=== PATIENT | male | born 1945 | race Caucasian/White ===

== ENCOUNTER 2019-09-12 08:08 | Outpatient (CLI) | payer MEDICARE, SELFPAY ==
--- NOTE | ~2019-09-12 | US_ITS ---
EXAMINATION: US carotid duplex BI DATE: 09/12/2019 08:53 INDICATION: Bilateral carotid stenosis TECHNIQUE: Grayscale, color Doppler, and pulsed Doppler images of the cervical carotid arteries were obtained. The degree of vessel stenosis is placed in one of the following categories: normal, <50%, 5 0-69%, >=70% but less than near-occlusion, near-occlusion, or total occlusion. Note that percent sten osis relative to normal distal artery lumen diameter is indirectly measured from velocity measurement s as described by Sami, et al. Radiology 2003; [id number]:340-346. COMPARISON: None. FINDINGS: RIGHT: The right common carotid artery (CCA) peak systolic velocity (PSV) is 68.8 cm/s. The right internal c arotid artery (ICA) PSV is 115.7 cm/s. The right ICA end-diastolic velocity (EDV) is 34.9 cm/s. The r ight ICA/CCA PSV ratio is 1.7. Grayscale and color Doppler images yield an estimate of less than 50% diameter reduction from plaque in the ICA. The external carotid artery (ECA) PSV is 117.3 cm/s. There is antegrade flow in the right vertebral artery. LEFT: The left CCA PSV is 80.9 cm/s. The left ICA PSV is 86.4 cm/s. The left ICA EDV is 35.8 cm/s. The left ICA/CCA PSV ratio is 1.1. Grayscale and color Doppler images yield an estimate of less than 50% diam eter reduction from plaque in the ICA. The ECA PSV is 110.8 cm/s. There is antegrade flow in the left vertebral artery. IMPRESSION: 1. Less than 50% stenosis in the right internal carotid artery. 2. Less than 50% stenosis in the left internal carotid artery. Reviewed, dictated and finalized at [facility]. Reviewed, dictated and finalized at location [facility].
== END 2019-09-12 08:09 | disposition home or self-care (01) ==
LOC: CHSIMG 08:11
PROVIDERS: PCP Internal Medicine; Visit Provider Internal Medicine
DX: I65.23 Occlusion and stenosis of bilateral carotid arteries (principal)
CPT/HCPCS: 93880

== ENCOUNTER 2019-12-27 11:25 | Outpatient (CLI) | payer MEDICARE, SELFPAY ==
--- NOTE | ~2019-12-27 | XR_ITS ---
EXAMINATION: XR chest 2V DATE: 12/27/2019 11:47 INDICATION: Chronic cough TECHNIQUE: PA and lateral views of the chest were obtained. COMPARISON: Chest radiograph dated 07/02/2018 FINDINGS: Small calcified nodules in the left upper and right middle lobes consistent with old granulomatous di sease. Lungs remain otherwise clear with no other airspace opacities, pulmonary edema, pleural effusi on or pneumothorax. The cardiomediastinal silhouette is normal. Mild thoracic spondylosis with minima l chronic anterior wedging of a few midthoracic vertebral bodies. IMPRESSION: 1. No acute cardiopulmonary disease. Reviewed, dictated and finalized at location [facility].
== END 2019-12-27 11:26 | disposition home or self-care (01) ==
LOC: CHSIMG 11:28
PROVIDERS: PCP Internal Medicine; Visit Provider Internal Medicine
DX: R05 Cough (principal); R19.7 Diarrhea, unspecified; K92.1 Melena; R19.4 Change in bowel habit; R10.9 Unspecified abdominal pain
CPT/HCPCS: 71046

== ENCOUNTER 2019-12-30 07:57 | Outpatient (CLI) | payer MEDICARE, SELFPAY ==
--- NOTE | ~2019-12-30 | CT_ITS ---
EXAMINATION: CT abdomen pelvis w con DATE: 12/30/2019 08:45 INDICATION: Low abdominal pain for 3 months. Diarrhea. History of diverticulitis. TECHNIQUE: Computed tomography (CT) of the abdomen and pelvis was performed without intravenous contr ast. Automated exposure control and iterative reconstruction technique were employed. Exam dose: 350 .24 mGy-cm total exam DLP. COMPARISON: None. FINDINGS: Normal heart size. No pericardial or pleural effusion. There is mild bilateral predominantl y dependent lower lobe atelectasis. There are numerous scattered hepatic probable cysts, most of which are quite small, the largest situa aldo in the medial hepatic dome, measuring up to 8 mm. The gallbladder is present. No gallbladder wall thickening or pericholecystic fluid or inflammation. No bile duct or pancreatic duct dilatation. No pancreatic mass lesion or calcification. Normal spleni c size. Normal morphology of the adrenal glands. There is an 8 mm and a 5 cm right renal cysts. There is a 1 cm left renal cyst. Radiopaque seeds are identified in the prostate. There is some soft tissue thickening along the poste rior bladder wall; prostate or bladder malignancy are not excluded. Normal appendix. No bowel obstruction, bowel wall thickening, pneumatosis or intraperitoneal free air . There is atherosclerotic calcification of the descending thoracic aorta and abdominal aorta. No intra peritoneal or retroperitoneal or pelvic mass lesion or adenopathy or ascites. There are degenerative changes of the thoracic and lumbar spine. There is severe degenerative disc di sease in particular at L5-S1 with mild retrolisthesis. No suspicious osteolytic or osteoblastic lesions are identified. IMPRESSION: Hepatic and renal cysts Radiopaque seeds in the prostate Soft tissue thickening along the posterior bladder wall; prostate or bladder malignancy are not exclu ded Reviewed, dictated and finalized at [facility]. Reviewed, dictated and finalized at location [facility]. IMPRESSION: Hepatic and renal cysts Radiopaque seeds in the prostate Soft tissue thickening along the posterior bladder wall; prostate or bladder ma lignancy are not excluded
[2019-12-30 08:25] LABS: Estimated Glomerular Filt Rate > 60
== END 2019-12-30 07:58 | disposition home or self-care (01) ==
PROVIDERS: PCP Internal Medicine; Visit Provider Internal Medicine
DX: R19.7 Diarrhea, unspecified (principal); K92.1 Melena; R19.4 Change in bowel habit; R10.9 Unspecified abdominal pain; R05 Cough
CPT/HCPCS: 74177; Q9965

== ENCOUNTER 2020-01-20 03:07 | Outpatient (CLI) | payer MEDICARE, SELFPAY ==
[2020-01-21 22:32] LABS: SARS-CoV-2 RNA PCR Negative
== END 2020-01-20 03:08 | disposition home or self-care (01) ==
LOC: ANHCOVIDDT 03:07
PROVIDERS: PCP Internal Medicine; Visit Provider Surgery
DX: Z01.812 Encounter for preprocedural laboratory examination (principal); Z11.59 Encounter for screening for other viral diseases
CPT/HCPCS: 87635; C9803; U0003

== ENCOUNTER 2020-01-22 02:23 | Day surgery (SDC) | payer MEDICARE, SELFPAY ==
[2020-01-09 14:55] VITALS: BMI 25.6
--- NOTE | 2020-01-22 10:29 | PM.HPGS ---
History of Present Illness History of Present Illness Consent: Risks, benefits, and alternatives of a colonoscopy with possible biopsy, possible polypectomy have been discussed and questions answered. Patient agrees to proceed with procedure. Chief complaint: change in bowel,melena Narrative: Odilon Hurt is a 74 year old white male who recently presented to his PCP with complaint loose stools 3 to 4 times a day and several episodes of bright red bleeding per rectum over the last 3 months. He was seen by his PCP on 12/27/2019 and subsequently had a CT scan of the abdomen pelvis which showed some prostatic sees from his previous prostate cancer radiation but no other abnormalities within the abdomen. Patient presents now for a colonoscopy for screening and to possible does of his melena. There has been no recent history of ingestion of antibiotics self shellfish or undercooked hamburger. Patient has no recent history of travel outside of the country. He has had no pain with bowel movements and has not previously had a colonoscopy. Review of Systems Constitutional: Constitutional: Reports no additional constitutional complaints, Reports fatigue and Denies malaise Eyes: Eyes: Denies change in vision and Denies loss of vision ENT: Reports Normal hearing present, Denies change in voice, Denies dizziness, Denies hoarseness, Reports nasal discharge ( recent mild but persistent rhinorrhea) and Denies sore throat Cardiovascular: Cardiovascular: Denies chest pain, Denies leg edema and Denies dyspnea Comments: Patient has a history of pure hypercholesterolemia. Respiratory: Respiratory: Reports cough ( Periodic dry cough), Denies dyspnea and Denies wheezing Comments: Patient has a history of a diagnosis of obstructive sleep apnea but is not obese. Gastrointestinal: Gastrointestinal: Denies hematochezia, Denies change in bowel habits and Denies heartburn Genitourinary: Genitourinary: Denies urinary frequency and Denies urinary incontinence Integumentary/Breasts: Comments: history of actinic keratoses. Neurologic: Reports Normal hearing present, Denies confusion, Denies dizziness, Denies loss of vision, Denies memory loss and Denies seizure-like activity Psychiatric: Psychiatric: Denies confusion, Denies depression and Denies memory loss Endocrine: Endocrine: Denies cold intolerance and Reports fatigue Hematologic/Lymphatic: Hematologic/Lymphatic: Denies easy bleeding and Denies easy bruising Allergic/Immunologic: Allergic/Immunologic: Denies wheezing PMFSH Past Medical History Medical History (Updated 01/22/20 @ 13:16 by Reza Butler MD) Actinic keratitis (Unknown) History of malignant neoplasm of prostate Hypercholesteremia (Unknown) Obstructive sleep apnea (Unknown) Social History Social History Smoking status: Former smoker Alcohol intake: never Substance use: never Gender identity (if verbalized by the patient): Male Sexual Orientation (if Verbalized by the Patient): Straight or Heterosexual Meds Home Medications and Allergies Home Medications Medication Instructions Recorded Confirmed Type No Home Medications 01/09/20 01/22/20 History Allergies Allergy/AdvReac Type Severity Reaction Status Date / Time No Known Allergies Allergy Unverified 01/22/20 11:35 Exam Const: General: cooperative, healthy appearing, no acute distress, well developed and alert; No confusion Nutritional Appearance: well nourished Orientation/consciousness: patient oriented x3 and No confusion Limitations: no limitations HENMT: Head: normal to inspection, normocephalic and atraumatic Ears: hearing grossly normal bilaterally General nose exam: Normal external nose present Face and sinus: no edema Mouth: Yes Normal oral and palatal mucosa present and Yes lip normal Throat: posterior oropharynx normal Eyes: General: appearance normal, both eyes a
[2020-01-22 11:36] VITALS: BP 122/68; PULSE 69; RESP 18; TEMP 36.4; O2SAT 100; BMI 25.2
[2020-01-22] MEDS: LACTATED RINGERS 1,000 ML 150 ML IV CONT (11:47)
--- NOTE | 2020-01-22 12:33 | WPDANESEPPF ---
Anes - Initial Pre Proc Eval Procedure: Operation Date: 01/22/20 13:00 Proposed Procedures p Colonoscopy - Reza Butler MD Date/Time: 01/22/20 12:33 Surgeon: Reza Butler MD Pre Op Diagnosis: change in bowel,melena Patient Data Age: 74 Gender: M Height: 5 ft 6 in Weight: 70.8 kg Last Vital Signs Temp 97.5 F L 01/22/20 11:36 Pulse 69 01/22/20 11:36 Resp 18 01/22/20 11:36 BP 122/68 01/22/20 11:36 Pulse Ox 100 01/22/20 11:36 Allergies Allergy/AdvReac Type Severity Reaction Status Date / Time No Known Allergies Allergy Unverified 01/22/20 11:35 Home Medications Medication Instructions Recorded Confirmed Type No Home Medications 01/09/20 01/22/20 History Patient hx anesthesia problems: none Family hx anesthesia problems: none PMFSH Past Medical History Medical History (Updated 01/22/20 @ 10:41 by Reza Butler MD) Actinic keratitis (Unknown) Hypercholesteremia (Unknown) Obstructive sleep apnea (Unknown) Social History Social History Smoking status: Former smoker Alcohol intake: never Substance use: never Gender identity (if verbalized by the patient): Male Sexual Orientation (if Verbalized by the Patient): Straight or Heterosexual Anes - Eval Final PreProcedure Day of Procedure 01/22/20 12:33 Patient weight: normal Heart: regular rate and rhythm Lungs: clear to auscultation Airway: Mallampati scale class II Neurological: alert and oriented Last oral intake: >/= 8 hours ASA classification: II Emergent: no Anesthetic plan: proceed Anesthesia type and monitoring: general GIVS and standard monitoring Informed Consent: The patient's anesthetic plan and its attendant risks and benefits were discussed with the patient/family/POA. Questions were solicited and answers provided to the satisfaction of the patient/family/POA.
[2020-01-22 14:32] VITALS: BP 99/63; PULSE 56; RESP 15; O2SAT 98
[2020-01-22 14:42] VITALS: BP 101/68; PULSE 54; RESP 14; O2SAT 100
[2020-01-22 14:52] VITALS: BP 121/80; PULSE 58; RESP 17; O2SAT 100
== END 2020-01-22 15:10 | disposition home or self-care (01) ==
PROVIDERS: PCP Internal Medicine; Visit Provider Surgery
PROC: 0DJD8ZZ Inspection of Lower Intestinal Tract, Via Natural or Artificial Opening Endoscopic (ICD-10-PCS; CPT 45378; principal; 2020-01-22 13:00)
DX: Z12.11 Encounter for screening for malignant neoplasm of colon (principal); D12.5 Benign neoplasm of sigmoid colon; K57.30 Diverticulosis of large intestine without perforation or abscess without bleeding; K64.8 Other hemorrhoids; R19.5 Other fecal abnormalities; R19.7 Diarrhea, unspecified; Z87.891 Personal history of nicotine dependence; G47.33 Obstructive sleep apnea (adult) (pediatric); E78.00 Pure hypercholesterolemia, unspecified; H16.139 Photokeratitis, unspecified eye; Z85.46 Personal history of malignant neoplasm of prostate
CPT/HCPCS: 45380; 88305; J2704; J7120

== ENCOUNTER 2021-03-14 13:37 | Emergency (ER) | payer MEDICARE, SELFPAY ==
[2021-03-14 13:45] VITALS: BP 140/73; PULSE 75; RESP 16; TEMP 35.8; O2SAT 99
[2021-03-14] MEDS: LIDOCAINE HCL 2% PF INJ 5 ML VIAL 3 ML INFILTRATE (14:20)
[2021-03-14] MEDS: IBUPROFEN 400 MG TABLET 800 MG PO (14:21)
--- NOTE | 2021-03-14 14:46 | ED.WOUNDLAC ---
HPI - Wound/Laceration General Chief Complaint: Wound/Laceration Stated Complaint: L hand lac Related Data Allergies Allergy/AdvReac Type Severity Reaction Status Date / Time No Known Allergies Allergy Unverified 01/22/20 11:35 [facility] Past Medical History Medical History (Updated 03/14/21 @ 14:50 by Dolores Tello MD) Actinic keratitis (Unknown) History of malignant neoplasm of prostate Hypercholesteremia (Unknown) Obstructive sleep apnea (Unknown) Social History Social History Smoking status: Former smoker Alcohol intake: never Substance use: never Gender identity (if verbalized by the patient): Male Sexual Orientation (if Verbalized by the Patient): Straight or Heterosexual Course Vital Signs Vital signs: Vital Signs Temperature 35.8 C L 03/14/21 13:45 Pulse Rate 75 03/14/21 13:45 Respiratory Rate 16 03/14/21 13:45 Blood Pressure 140/73 03/14/21 13:45 Pulse Oximetry 99 03/14/21 13:45 Temperature 35.8 C L 03/14/21 13:45 Pulse Rate 75 03/14/21 13:45 Respiratory Rate 16 03/14/21 13:45 Blood Pressure 140/73 03/14/21 13:45 Pulse Oximetry 99 03/14/21 13:45 Discharge Plan Discharge Clinical Impression: Laceration Patient Disposition: Home, Self-Care Condition: Stable Instructions: Antibiotic Form, Care For Your Stitches (ED), Laceration (ED) Additional Instructions: Home. May RTC prn. PMD in 1-2 days. Rx below. Keep the lac clean, dry and dressed. OTC tylenol/motrin. Prescriptions: New amoxicillin 875 mg tablet 875 mg PO Q12H Qty: 20 RF: 0 Follow-up/Referrals: Ángel Guevara MD [Primary Care Provider] - Time of Disposition: 14:51
[2021-03-14 14:52] VITALS: BP 123/72; PULSE 71; RESP 16; O2SAT 100
--- NOTE | 2021-03-14 14:56 | ED.WOUNDLAC ---
HPI - Wound/Laceration General Chief Complaint: Wound/Laceration Stated Complaint: L hand lac Time Seen by Provider: 03/14/21 13:39 Source: patient Mode of arrival: ambulatory Limitations: no limitations History of Present Illness HPI narrative: left wrist lateral laceration 3.5 cm, linear, gaping. Onset (ago): hour(s) (1) Extremity Location: Left: wrist Place: home Patient tetanus UTD: Yes Context: accidental Associated symptoms: pain Treatments prior to arrival: bandage Related Data Allergies Allergy/AdvReac Type Severity Reaction Status Date / Time No Known Allergies Allergy Unverified 01/22/20 11:35 Review of Systems Review of Systems: All systems reviewed & are unremarkable except as noted in HPI and below Musculoskeletal: Comments: lateral left wrist laceration PMFSH Past Medical History Medical History Actinic keratitis (Unknown) History of malignant neoplasm of prostate Hypercholesteremia (Unknown) Obstructive sleep apnea (Unknown) Social History Social History Smoking status: Former smoker Alcohol intake: never Substance use: never Gender identity (if verbalized by the patient): Male Sexual Orientation (if Verbalized by the Patient): Straight or Heterosexual Exam Const: General: no acute distress and alert Nutritional Appearance: well nourished Orientation/consciousness: patient oriented x3 HENMT: Head: normal to inspection and laceration Ears: external ears normal and TM's normal bilaterally General nose exam: Normal external nose present and Normal nares present Mouth: Yes lip normal and Yes moist mucous membranes Teeth and gingiva: dentition normal Eyes: Conjunctivae: conjunctivae normal Pupils: Equal, round and reactive pupils present EOM: EOMs intact bilaterally Neck: Neck: normal visual inspection and no lymphadenopathy Chest: Chest palpation & inspection: normal inspection of the chest Resp: Effort & Inspection: normal respiratory effort Auscultation: clear to auscultation bilaterally Cardio: Rate: regular rate Rhythm: regular rhythm GI: GI Palp: Yes Soft to palpation (non-tender) Percussion: Yes normal to percussion Back/Spine/Pelvis: Back: no CVA tenderness Skin: General skin exam: normal color Rashes: no rashes Neuro: General: patient oriented x3, moves all extremities, no meningeal signs, no focal motor deficits and CN's II-XI intact bilaterally Extrem: General: normal to inspection and no pedal edema Other: 3.5 cm gaping linear laceration of lateral left wrist. full ROM, no acute bleeding. Psych: Appearance: grossly normal and well kempt Mental Status: mental status grossly normal Affect: normal affect Thought content: Yes Normal thought content present Course Course Emergency Course: Stable, pain-free pt with repaired left wrist laceration, for home. Pt deferred the wrist x-ray. Reevaluation(s) Reevaluation #1: Pain-free pt with left wrist lac repaired. no acute neurovascular deficit. Date: 03/14/21 Time: 14:29 Vital Signs Vital signs: Vital Signs Temperature 35.8 C L 03/14/21 13:45 Pulse Rate 75 03/14/21 13:45 Respiratory Rate 16 03/14/21 13:45 Blood Pressure 140/73 03/14/21 13:45 Pulse Oximetry 99 03/14/21 13:45 Temperature 35.8 C L 03/14/21 13:45 Pulse Rate 75 03/14/21 13:45 Respiratory Rate 16 03/14/21 13:45 Blood Pressure 140/73 03/14/21 13:45 Pulse Oximetry 99 03/14/21 13:45 MDM - Wound/Laceration Differential Diagnosis Differential diagnosis: Likely laceration Medical Records Attestation: I reviewed the patient's medical records. Critical Care Time Critical Care Time Critical Care Time: No Total Critical Care Time: 0 Discharge Plan Discharge Clinical Impression: Laceration Patient Disposition: Home, Self-Care Condition: Stable Instructions: Antibiotic Form, Care For Yo
== END 2021-03-14 14:59 | disposition home or self-care (01) ==
PROVIDERS: Emergency Provider Emergency Medicine; PCP Internal Medicine
DX: S61.512A Laceration without foreign body of left wrist, initial encounter (principal); W45.8XXA Other foreign body or object entering through skin, initial encounter; Z87.891 Personal history of nicotine dependence; E78.00 Pure hypercholesterolemia, unspecified; Z85.46 Personal history of malignant neoplasm of prostate
CPT/HCPCS: 73140; 99283; A9270

== ENCOUNTER 2022-09-12 11:00 | Outpatient (CLI) | payer MEDICARE, SELFPAY ==
--- NOTE | ~2022-09-12 | XR_ITS ---
XR chest 2V DATE: 09/12/2022 11:18 INDICATION: Chronic nonproductive cough for one month TECHNIQUE: 2 views COMPARISON: 12/26/2021 view chest FINDINGS: Normal heart size. No hilar or mediastinal enlargement. Moderate hyperinflation. No pulmona ry infiltrate or consolidation, pleural effusion or pulmonary vascular congestion or pneumothorax. Degenerative spurring of the thoracic spine. IMPRESSION: Moderate hyperinflation; no active cardiopulmonary disease Reviewed, dictated and finalized at location [facility].
== END 2022-09-12 11:01 | disposition home or self-care (01) ==
LOC: CHSIMG 11:04
PROVIDERS: PCP Internal Medicine; Visit Provider Internal Medicine
DX: R05.9 Cough, unspecified (principal); R91.8 Other nonspecific abnormal finding of lung field
CPT/HCPCS: 71046

== ENCOUNTER 2022-10-14 10:26 | Outpatient (CLI) | payer MEDICARE, SELFPAY ==
--- NOTE | ~2022-10-14 | US_ITS ---
EXAMINATION: US carotid duplex BI DATE: 10/14/2022 10:59 INDICATION: Carotid stenosis TECHNIQUE: Grayscale, color Doppler, and pulsed Doppler images of the cervical carotid arteries were obtained. The degree of vessel stenosis is placed in one of the following categories: normal, <50%, 5 0-69%, >=70% but less than near-occlusion, near-occlusion, or total occlusion. Note that percent sten osis relative to normal distal artery lumen diameter is indirectly measured from velocity measurement s as described by Sami, et al. Radiology 2003; [id number]. Notes: Normal: Peak systolic velocity <125 centimeters/sec and no plaque <50%. Peak systolic velocity <125 ( EDV <40; ICA/CCA PSV ratio <2.0; used these factors only a tandem lesions or low cardiac output or co ntralateral disease) 50-69 %: PSV 125-230 (EDV 40-100; ratio 2-4) >= 70% but less than near occlusion: PSV greater than 230 (EDV > 100; ratio> 4.0) Near Occlusion: PSV that is variable; markedly narrowed lumen Occlusion: Absent flow on color/spectral Doppler and no lumen on leblanc scale. COMPARISON: None. FINDINGS: RIGHT: The right common carotid artery (CCA) peak systolic velocity (PSV) is 51 cm/s. The right internal car otid artery (ICA) PSV is 200 cm/s. The right ICA end-diastolic velocity (EDV) is 44 cm/s. The right I CA/CCA PSV ratio is 3.9. The external carotid artery (ECA) PSV is 121 cm/s. There is antegrade flow i n the right vertebral artery. LEFT: The left CCA PSV is 65 cm/s. The left ICA PSV is 76 cm/s. The left ICA EDV is 29 cm/s. The left ICA/C CA PSV ratio is 1.1. The ECA PSV is 64 cm/s. There is antegrade flow in the left vertebral artery. IMPRESSION: 1. 50-69% stenosis in the right internal carotid artery by sonographic criteria. 2. Less than 50% stenosis in the left internal carotid artery by sonographic criteria. Reviewed, dictated and finalized at location A. IMPRESSION: 1. 50-69% stenosis in the right internal carotid artery by sonographic criteria . 2. Less than 50% stenosis in the left internal carotid artery by sonographic cr iteria.
== END 2022-10-14 10:27 | disposition home or self-care (01) ==
LOC: CHSIMG 10:28
PROVIDERS: PCP Internal Medicine; Visit Provider Internal Medicine
DX: I65.23 Occlusion and stenosis of bilateral carotid arteries (principal)
CPT/HCPCS: 93880

== ENCOUNTER 2022-10-27 01:57 | Day surgery (SDC) | payer MEDICARE, SELFPAY ==
[2022-10-19 09:18] VITALS: BMI 23.9
[2022-10-27 08:50] VITALS: BP 110/70; PULSE 64; RESP 18; TEMP 36.1; O2SAT 100; BMI 23.3
[2022-10-27] MEDS: LACTATED RINGERS 1,000 ML 150 ML IV CONT (09:05)
--- NOTE | 2022-10-27 09:45 | WPDANESEPPF ---
Anes - Initial Pre Proc Eval Procedure: Operation Date: 10/27/22 09:45 Proposed Procedures p Colonoscopy - Raheel Silverio DO Date/Time: 10/27/22 09:45 Surgeon: Raheel Silverio DO Pre Op Diagnosis: hx colon polyps Patient Data Age: 76 Gender: M Height: 1.73 m Weight: 69.7 kg Last Vital Signs Temp 96.9 F L 10/27/22 08:50 Pulse 64 10/27/22 08:50 Resp 18 10/27/22 08:50 BP 110/70 10/27/22 08:50 Pulse Ox 100 10/27/22 08:50 O2 Del Method Room Air 10/27/22 08:50 Allergies Allergy/AdvReac Type Severity Reaction Status Date / Time No Known Allergies Allergy Verified 10/27/22 08:47 Home Medications Medication Instructions Recorded Confirmed Type atorvastatin 10 mg tablet 10 mg PO DAILY 10/19/22 10/27/22 History multivitamin with minerals-folic 1 tablet PO DAILY 10/19/22 10/27/22 History acid 0.4 mg tablet Patient hx anesthesia problems: none Family hx anesthesia problems: none Results Review: All pre-operative results and documents have been reviewed as part of the pre-operative evaluation. [facility] Past Medical History Medical History Actinic keratitis (Unknown) History of malignant neoplasm of prostate Hypercholesteremia (Unknown) Obstructive sleep apnea (Unknown) Social History Social History Smoking status: Never smoker Alcohol intake: never Substance use: never Substance use type: does not use Living arrangements: with family Gender identity (if verbalized by the patient): Male Sexual Orientation (if Verbalized by the Patient): Straight or Heterosexual Spiritual care concerns: No Anes - Eval Final PreProcedure Day of Procedure 10/27/22 09:45 Patient weight: normal Heart: regular rate and rhythm Lungs: clear to auscultation Airway: Mallampati scale class II Neurological: alert and oriented Last oral intake: >/= 8 hours ASA classification: III Emergent: no Anesthetic plan: proceed Anesthesia type and monitoring: general GIVS and standard monitoring Results Review: All pre-operative results and documents have been reviewed as part of the pre-operative evaluation. Informed Consent: The patient's anesthetic plan and its attendant risks and benefits were discussed with the patient/family/POA. Questions were solicited and answers provided to the satisfaction of the patient/family/POA.
--- NOTE | 2022-10-27 10:24 | PM.IMHP ---
H&P: HPI History of Present Illness Date/Time: 10/27/22 10:24 Chief Complaint: History of colon polyps Narrative: This is a 76-year-old man who presents for colonoscopy. His last colonoscopy was 3 years ago and a polyp was removed at that time. He denies any hematochezia or melena. He denies any family history of colon cancer. Review of Systems Review of Systems: All systems reviewed & are unremarkable except as noted in HPI and below Constitutional: Constitutional: Denies chills, Denies fever(s), Denies headache(s) and Denies weight loss Eyes: Eyes: Denies change in vision ENT: Denies dizziness, Denies headache(s), Denies neck mass and Denies throat swelling Cardiovascular: Cardiovascular: Denies chest pain, Denies lightheadedness and Denies dyspnea Respiratory: Respiratory: Denies cough, Denies dyspnea and Denies wheezing Gastrointestinal: Gastrointestinal: Denies abdominal pain, Denies change in bowel habits, Denies nausea and Denies vomiting Genitourinary: Genitourinary: Denies hematuria and Denies dysuria Musculoskeletal: Musculoskeletal: Reports as per HPI Integumentary/Breasts: Skin/Breast: Reports as per HPI Neurologic: Denies dizziness and Denies headache(s) Allergic/Immunologic: Allergic/Immunologic: Denies throat swelling and Denies wheezing PMFSH Past Medical History Medical History Actinic keratitis (Unknown) History of malignant neoplasm of prostate Hypercholesteremia (Unknown) Obstructive sleep apnea (Unknown) Social History Social History Smoking status: Never smoker Alcohol intake: never Substance use: never Substance use type: does not use Living arrangements: with family Gender identity (if verbalized by the patient): Male Sexual Orientation (if Verbalized by the Patient): Straight or Heterosexual Spiritual care concerns: No Meds Home Medications and Allergies Home Medications Medication Instructions Recorded Confirmed Type atorvastatin 10 mg tablet 10 mg PO DAILY 10/19/22 10/27/22 History multivitamin with minerals-folic 1 tablet PO DAILY 10/19/22 10/27/22 History acid 0.4 mg tablet Allergies Allergy/AdvReac Type Severity Reaction Status Date / Time No Known Allergies Allergy Verified 10/27/22 08:47 Vital Signs Vital Signs - 24 hr 10/27/22 08:50 Temperature 36.1 C L Pulse Rate 64 Respiratory Rate 18 Blood Pressure 110/70 Pulse Oximetry 100 Oxygen Delivery Room Air Exam Const: General: no acute distress and alert Orientation/consciousness: patient oriented x3 HENMT: Head: normocephalic and atraumatic Ears: hearing grossly normal bilaterally Face/Nose/Sinus: Normal nares present Mouth: Yes Normal oral and palatal mucosa present Eyes: Periorbital: periorbital findings normal Sclera: sclerae normal EOM: EOMs intact bilaterally Neck: Neck: normal visual inspection, no lymphadenopathy and trachea midline Chest: Chest palpation & inspection: normal inspection of the chest Resp: Effort & Inspection: normal respiratory effort Auscultation: clear to auscultation bilaterally Cardio: Jugular venous distension: no JVD Rate: regular rate Rhythm: regular rhythm Heart sounds: S1 normal heart sound present and S2 normal heart sound present Peripheral pulses: Peripheral pulses 2+ throughout GI: Inspection: normal to inspection GI Palp: Yes Soft to palpation, No Tenderness to palpation present (GI), No Guarding due to palpation present (GI) and No Rebound tenderness present Percussion: Yes normal to percussion Auscultation: normal bowel sounds : General: Yes no CVA tenderness Back/Spine/Pelvis: Back: no CVA tenderness Neuro: General: patient oriented x3, no focal motor deficits and CN's II-XI intact bilaterally Cognition (Neuro): normal cognition Speech: normal speech Motor exam (neuro): 5/5 motor strength presen
[2022-10-27 11:01] VITALS: BP 96/59; PULSE 55; RESP 17; O2SAT 97
[2022-10-27 11:11] VITALS: BP 119/62; PULSE 54; RESP 14; O2SAT 100
[2022-10-27 11:21] VITALS: BP 124/62; PULSE 53; RESP 12; O2SAT 100
== END 2022-10-27 11:30 | disposition home or self-care (01) ==
PROVIDERS: PCP Internal Medicine; Visit Provider Surgery
PROC: 0DJD8ZZ Inspection of Lower Intestinal Tract, Via Natural or Artificial Opening Endoscopic (ICD-10-PCS; CPT 45378; principal; 2022-10-27 09:45)
DX: Z12.11 Encounter for screening for malignant neoplasm of colon (principal); D12.3 Benign neoplasm of transverse colon; K64.8 Other hemorrhoids; E78.00 Pure hypercholesterolemia, unspecified; G47.33 Obstructive sleep apnea (adult) (pediatric); Z85.46 Personal history of malignant neoplasm of prostate
CPT/HCPCS: 45385; 88305; J2704; J7120

== ENCOUNTER 2023-01-11 08:07 | Outpatient (CLI) | payer MEDICARE, SELFPAY ==
[2023-01-11 08:57] LABS: Alanine Aminotransferase 24 U/L (16-63); Aspartate Amino Transferase 13 U/L (15-37); Cholesterol 147 mg/dL (0-200); Creatine Kinase 62 U/L (39-308); HDL Direct 50 mg/dL (40-60); LDL Cholesterol Calculated 87 mg/dL (<130); Triglycerides 49 mg/dL (0-150)
== END 2023-01-11 08:08 | disposition home or self-care (01) ==
LOC: CHSLAB 08:09
PROVIDERS: PCP Internal Medicine; Visit Provider Internal Medicine
DX: E78.00 Pure hypercholesterolemia, unspecified (principal)
CPT/HCPCS: 36415; 80061; 82550; 84450; 84460

== ENCOUNTER 2023-04-08 08:03 | Outpatient (CLI) | payer MEDICARE, SELFPAY ==
[2023-04-08 08:30] LABS: Appearance Urine Clear (Clear); Bilirubin Urine Negative (Negative); Blood Urine 1+ (Negative); Color Urine Light Yellow (Yellow); Glucose Urine UA Negative (Negative); Ketones Urine Negative (Negative); Leukocyte Esterase Ur Negative LEU/UL (Negative); Nitrate Urine Negative (Negative); Protein Urine Negative (Negative); Specific Grav Ur 1.025 (1.010-1.020); Urobilinogen Urine 0.2 mg/dL (0.2-1.0)
[2023-04-08 08:31] LABS: Basophils Absolute Auto 0.01 K/mm3 (0.00-0.10); Basophils Percent Auto 0.2 % (0.0-1.0); Eosinophils Absolute Auto 0.15 K/mm3 (0.02-0.50); Eosinophils Percent Auto 2.7 % (1.0-6.0); Hematocrit 39.2 % (37.0-46.0); Immature Granulocyte Absolute 0.02 K/mm3 (0.00-0.00); Immature Granulocyte Percent A 0.4 % (0.0-0.0); Lymphocytes Absolute Auto 2.22 K/mm3 (1.10-4.50); Lymphocytes Percent Auto 39.4 % (18.0-42.0); Mean Corpuscular HGB Conc 33.2 g/dL (32.0-36.0); Mean Corpuscular Hemoglobin 31.4 pg (27.0-31.0); Mean Corpuscular Volume 94.7 fL (78.0-102.0); Mean Platelet Volume 10.5 fl (8.7-11.0); Monocytes Absolute Auto 0.46 K/mm3 (0.10-0.90); Monocytes Percent Auto 8.2 % (2.0-11.0); Neutrophils Absolute Auto 2.8 K/mm3 (1.7-7.2); Neutrophils Percent Auto 49.1 % (50.0-70.0); Platelet Count Result 160 K/mm3 (150-420); Red Blood Count 4.14 M/mm3 (4.70-6.10); Red Cell Distribution Width 12.7 % (11.6-14.4); White Blood Count 5.6 K/mm3 (4.8-10.8)
[2023-04-08 08:47] LABS: Add Urine Microscopic? YES; Bacteria Urine Trace /hpf; Mucus Urine Few /lpf; Squamous Epithelial Cell Urine Rare /hpf (Few); WBC Urine None seen /hpf (0-3)
[2023-04-08 08:56] LABS: Alanine Aminotransferase 17 U/L (16-63); Albumin Level 3.4 g/dL (3.4-5.0); Alkaline Phosphatase 92 U/L (46-116); Anion Gap 8 mmol/L (8-16); Aspartate Amino Transferase 11 U/L (15-37); Bilirubin,Total 0.4 mg/dL (0.00-1.00); Blood Urea Nitrogen 15 mg/dL (7-18); Calcium 8.6 mg/dL (8.5-10.1); Carbon Dioxide 29 mmol/L (21-32); Chloride 107 mmol/L (98-108); Cholesterol 134 mg/dL (0-200); Creatine Kinase 64 U/L (39-308); Estimated Glomerular Filt Rate > 60; Glucose 96 mg/dL (70-99); HDL Direct 46 mg/dL (40-60); LDL Cholesterol Calculated 74 mg/dL (<130); Osmolality Calculated 298 mOsm/kg (285-295); Potassium 3.9 mmol/L (3.5-5.1); Sodium 144 mmol/L (136-145); Total Protein 6.1 g/dL (6.4-8.2); Triglycerides 72 mg/dL (0-150)
== END 2023-04-08 08:04 | disposition home or self-care (01) ==
LOC: CHSLAB 08:04
PROVIDERS: PCP Internal Medicine; Visit Provider Internal Medicine
DX: N39.0 Urinary tract infection, site not specified (principal); E78.00 Pure hypercholesterolemia, unspecified
CPT/HCPCS: 36415; 80053; 80061; 81001; 82550; 85025

== ENCOUNTER 2023-04-18 13:26 | Outpatient (CLI) | payer MEDICARE, SELFPAY ==
--- NOTE | ~2023-04-18 | US_ITS ---
EXAMINATION: US carotid duplex BI DATE: 04/18/2023 13:59 INDICATION: Follow-up carotid stenosis TECHNIQUE: Grayscale, color Doppler, and pulsed Doppler images of the cervical carotid arteries were obtained. The degree of vessel stenosis is placed in one of the following categories: normal, <50%, 5 0-69%, >=70% but less than near-occlusion, near-occlusion, or total occlusion. Note that percent sten osis relative to normal distal artery lumen diameter is indirectly measured from velocity measurement s as described by Sami, et al. Radiology 2003; [id number]. Notes: Normal: Peak systolic velocity <125 centimeters/sec and no plaque <50%. Peak systolic velocity <125 ( EDV <40; ICA/CCA PSV ratio <2.0; used these factors only a tandem lesions or low cardiac output or co ntralateral disease) 50-69 %: PSV 125-230 (EDV 40-100; ratio 2-4) >= 70% but less than near occlusion: PSV greater than 230 (EDV > 100; ratio> 4.0) Near Occlusion: PSV that is variable; markedly narrowed lumen Occlusion: Absent flow on color/spectral Doppler and no lumen on leblanc scale. COMPARISON: None. FINDINGS: RIGHT: The right common carotid artery (CCA) peak systolic velocity (PSV) is 53 cm/s. The right internal car otid artery (ICA) PSV is 235 cm/s. The right ICA end-diastolic velocity (EDV) is 48 cm/s. The right I CA/CCA PSV ratio is 4.4. The external carotid artery (ECA) PSV is 181 cm/s. There is antegrade flow i n the right vertebral artery. LEFT: The left CCA PSV is 61 cm/s. The left ICA PSV is 79 cm/s. The left ICA EDV is 34 cm/s. The left ICA/C CA PSV ratio is 1.3. The ECA PSV is 76 cm/s. There is antegrade flow in the left vertebral artery. IMPRESSION: 1. Greater than or equal to 70% stenosis in the right internal carotid artery by sonographic criteria . 2. Less than 50% stenosis in the left internal carotid artery by sonographic criteria. Reviewed, dictated and finalized at location L. IMPRESSION: 1. Greater than or equal to 70% stenosis in the right internal carotid artery b y sonographic criteria. 2. Less than 50% stenosis in the left internal carotid artery by sonographic cr iteria.
== END 2023-04-18 13:27 | disposition home or self-care (01) ==
LOC: CHSIMG 13:28
PROVIDERS: PCP Internal Medicine; Visit Provider Internal Medicine
DX: I65.23 Occlusion and stenosis of bilateral carotid arteries (principal)
CPT/HCPCS: 93880

== ENCOUNTER 2023-04-25 07:43 | Outpatient (CLI) | payer MEDICARE, SELFPAY ==
--- NOTE | ~2023-04-25 | CT_ITS ---
EXAMINATION: CTA neck DATE: 04/25/2023 08:28 INDICATION: Bilateral carotid stenosis. TECHNIQUE: Computed tomographic angiography (CTA) of the neck was performed with 100 mL Omnipaque-350 intravenous contrast. Automated exposure control and iterative reconstruction technique were employe d. The dose-length product was 610.95 mGy-cm. Maximum intensity projection 3D-reconstructions were cr eated by the technologist on a separate workstation. COMPARISON: Ultrasound 04/18/2023 FINDINGS: There are no pathologically enlarged lymph nodes. Left vertebral artery is dominant. There is no significant stenosis of the vertebral arteries. There is plaque in the proximal internal caroti d arteries. There is 55% stenosis of the proximal right internal carotid artery relative to normal di stal artery lumen diameter (NASCET criteria). There is 0% stenosis of the proximal left internal elena tid artery relative to normal distal artery lumen diameter. There is severe cervical spondylosis. IMPRESSION: 1. 55% stenosis of the proximal right internal carotid artery relative to normal distal artery lumen diameter (NASCET criteria). 2. 0% stenosis of the proximal left internal carotid artery relative to normal distal artery lumen di ameter. Reviewed, dictated and finalized at location E. IMPRESSION: 1. 55% stenosis of the proximal right internal carotid artery relative to sahara l distal artery lumen diameter (NASCET criteria). 2. 0% stenosis of the proximal left internal carotid artery relative to normal distal artery lumen diameter.
== END 2023-04-25 07:44 | disposition home or self-care (01) ==
LOC: CHSIMG 07:45
PROVIDERS: PCP Internal Medicine; Visit Provider Internal Medicine
DX: I65.21 Occlusion and stenosis of right carotid artery (principal)
CPT/HCPCS: 70498; Q9967

== ENCOUNTER 2023-11-13 08:05 | Outpatient (CLI) | payer MEDICARE, SELFPAY ==
[2023-11-13 09:11] LABS: Appearance Urine Clear (Clear); Basophils Absolute Auto 0.01 K/mm3 (0.00-0.10); Basophils Percent Auto 0.2 % (0.0-1.0); Bilirubin Urine Negative (Negative); Blood Urine Negative (Negative); Color Urine Yellow (Yellow); Eosinophils Absolute Auto 0.12 K/mm3 (0.02-0.50); Eosinophils Percent Auto 2.5 % (1.0-6.0); Glucose Urine UA Negative (Negative); Hematocrit 41.4 % (37.0-46.0); Hemoglobin 13.2 g/dL (12.4-15.3); Immature Granulocyte Absolute 0.01 K/mm3 (0.00-0.00); Immature Granulocyte Percent A 0.2 % (0.0-0.0); Ketones Urine Negative (Negative); Leukocyte Esterase Ur Negative (Negative); Lymphocytes Absolute Auto 1.81 K/mm3 (1.10-4.50); Lymphocytes Percent Auto 37.6 % (18.0-42.0); Mean Corpuscular HGB Conc 31.9 g/dL (32-36); Mean Corpuscular Hemoglobin 30.1 pg (27.0-31.0); Mean Corpuscular Volume 94.3 fL (78.0-102.0); Mean Platelet Volume 10.4 fl (8.7-11.0); Monocytes Absolute Auto 0.45 K/mm3 (0.10-0.90); Monocytes Percent Auto 9.3 % (2.0-11.0); Neutrophils Absolute Auto 2.42 K/mm3 (1.70-7.20); Neutrophils Percent Auto 50.2 % (50.0-70.0); Nitrate Urine Negative (Negative); Platelet Count Result 159 K/mm3 (150-420); Protein Urine Negative (Negative); Red Blood Count 4.39 M/mm3 (4.70-6.10); Red Cell Distribution Width 13.1 % (11.6-14.4); Specific Grav Ur >= 1.030 (1.010-1.020); Urobilinogen Urine 0.2 mg/dL (0.2-1.0); White Blood Count 4.8 K/mm3 (4.8-10.8)
[2023-11-13 10:11] LABS: Add Urine Microscopic? NO
[2023-11-13 23:10] LABS: Alanine Aminotransferase 25 U/L (16-63); Albumin Level 3.5 g/dL (3.4-5.0); Alkaline Phosphatase 69 U/L (46-116); Anion Gap 8 mmol/L (4-12); Aspartate Amino Transferase 18 U/L (15-37); Blood Urea Nitrogen 20 mg/dL (7-18); Calcium 8.6 mg/dL (8.5-10.1); Carbon Dioxide 29 mmol/L (21-32); Chloride 106 mmol/L (98-108); Cholesterol 147 mg/dL (0-200); Creatine Kinase 76 U/L (39-308); Estimated Glomerular Filt Rate > 60; Glucose 94 mg/dL (70-99); HDL Direct 56 mg/dL (40-60); LDL Cholesterol Calculated 79 mg/dL (<130); Osmolality Calculated 298 mOsm/kg (285-295); Potassium 4.2 mmol/L (3.5-5.1); Sodium 143 mmol/L (136-145); Total Protein 6.2 g/dL (6.4-8.2); Triglycerides 58 mg/dL (0-150)
== END 2023-11-13 08:06 | disposition home or self-care (01) ==
LOC: CHSLAB 08:08
PROVIDERS: PCP Internal Medicine; Visit Provider Internal Medicine
DX: E78.00 Pure hypercholesterolemia, unspecified (principal); Z86.010 Personal history of colon polyps
CPT/HCPCS: 36415; 80053; 80061; 81003; 82550; 85025

== ENCOUNTER 2024-03-14 10:39 | Emergency (ER) | payer MEDICARE, SELFPAY ==
--- NOTE | ~2024-03-14 | CT_ITS ---
EXAMINATION: CT abdomen pelvis wo con DATE: 03/14/2024 11:14 INDICATION: Right flank pain TECHNIQUE: Computed tomography (CT) of the abdomen and pelvis was performed without intravenous contr ast. Automated exposure control and iterative reconstruction technique were employed. The dose-length product was 264.65 mGy-cm. COMPARISON: 12/30/2019 FINDINGS: Mild dependent atelectasis in the bilateral lower lobes. Heart size is normal. No pericardial or pleu ral effusion. There are a few unchanged small low-attenuation hepatic lesions the largest measuring 8 mm consistent with hepatic cysts. Gallbladder, spleen, pancreas and bilateral adrenal glands are nor mal. Bilateral renal cysts measuring 2.1 cm on the left and 6.2 cm on the right. No urolithiasis or h ydronephrosis. Surgical clips versus brachytherapy seeds at the mildly enlarged prostate which measur es 4.0 x 4.0 cm. Partially decompressed bladder is unremarkable. Bowels including the appendix are no rmal. No free intraperitoneal gas or fluid. No pathologically enlarged abdominal or pelvic lymphadeno richard. Tiny fat-containing umbilical hernia. Severe lumbar spondylosis. 4 mm retrolisthesis L5 on S1. IMPRESSION: 1. No urolithiasis or acute intra-abdominal/pelvic process. Reviewed, dictated and finalized at location B.
[2024-03-14 10:39] VITALS: BP 134/76; PULSE 60; RESP 16; TEMP 36.1; O2SAT 98
[2024-03-14] MEDS: SODIUM CHLORIDE 0.9% IV 1,000 ML 999 ML IV CONT (11:03)
[2024-03-14] MEDS: KETOROLAC 30 MG/ML VIAL (*BKC) IV PUSH (11:05)
[2024-03-14 11:08] LABS: Basophils Absolute Auto 0.01 K/mm3 (0.00-0.10); Basophils Percent Auto 0.2 % (0.0-1.0); Eosinophils Absolute Auto 0.09 K/mm3 (0.02-0.50); Eosinophils Percent Auto 1.5 % (1.0-6.0); Hematocrit 41.1 % (37.0-46.0); Immature Granulocyte Absolute 0.02 K/mm3 (0.00-0.00); Immature Granulocyte Percent A 0.3 % (0.0-0.0); Lymphocytes Absolute Auto 1.94 K/mm3 (1.10-4.50); Lymphocytes Percent Auto 32.3 % (18.0-42.0); Mean Corpuscular HGB Conc 34.1 g/dL (32-36); Mean Corpuscular Hemoglobin 31.7 pg (27.0-31.0); Mean Corpuscular Volume 93.2 fL (78.0-102.0); Monocytes Absolute Auto 0.39 K/mm3 (0.10-0.90); Monocytes Percent Auto 6.5 % (2.0-11.0); Neutrophils Absolute Auto 3.55 K/mm3 (1.70-7.20); Neutrophils Percent Auto 59.2 % (50.0-70.0); Platelet Count Result 156 K/mm3 (150-420); Red Blood Count 4.41 M/mm3 (4.70-6.10); Red Cell Distribution Width 12.7 % (11.6-14.4)
[2024-03-14 11:09] LABS: Add Urine Microscopic? NO; Appearance Urine Clear (Clear); Bilirubin Urine Negative (Negative); Blood Urine Negative (Negative); Color Urine Light Yellow (Yellow); Glucose Urine UA Negative (Negative); Ketones Urine Negative (Negative); Leukocyte Esterase Ur Negative LEU/UL (Negative); Nitrate Urine Negative (Negative); Protein Urine Negative (Negative); Urobilinogen Urine 0.2 mg/dL (0.2-1.0)
--- NOTE | 2024-03-14 11:11 | PC.NURSE ---
PT HAS RETURNED FROM CT, IN WAITING ROOM AT THIS TIME, SHE DOES NOT WISH TO COME BACK AT THIS TIME. SHE HAS BEEN UPDATED ON PT STATUS. PT DENIES ANY NEEDS OR COMPLAINTS. IVF INFUSING ORDERED WITHOUT DIFFICULTY. WILL CONTINUE TO MONITOR.
[2024-03-14 11:22] LABS: Alanine Aminotransferase 23 U/L (16-63); Albumin Level 3.6 g/dL (3.4-5.0); Alkaline Phosphatase 78 U/L (46-116); Anion Gap 3 mmol/L (4-12); Aspartate Amino Transferase 18 U/L (15-37); Bilirubin,Total 0.8 mg/dL (0.00-1.00); Blood Urea Nitrogen 17 mg/dL (7-18); Calcium 8.3 mg/dL (8.5-10.1); Carbon Dioxide 32 mmol/L (21-32); Chloride 104 mmol/L (98-108); Creatine Kinase 69 U/L (39-308); Estimated CRCL calculation 50 ml/min; Estimated Glomerular Filt Rate > 60; Glucose 93 mg/dL (70-99); Lipase 21 U/L (16-77); Osmolality Calculated 289 mOsm/kg (285-295); Potassium 3.5 mmol/L (3.5-5.1); Sodium 139 mmol/L (136-145); Total Protein 6.8 g/dL (6.4-8.2)
[2024-03-14 11:26] LABS: Lactic Acid Reflex 1.1 mmol/L (0.4-2.0)
--- NOTE | 2024-03-14 11:30 | ED.BACK ---
HPI - Back Pain/Injury General Chief Complaint: Back Pain/Injury Stated Complaint: back pain Time Seen by Provider: 03/14/24 10:44 Source: patient Mode of arrival: ambulatory Limitations: no limitations History of Present Illness HPI Narrative: this is a 78-year-old male who presents with some right lower back pain in the flank area with no radiation of his pain started earlier today rates it at about a 9/10 with no sciatic there is no abdominal pain no dysuria no hematuria no fever or chills no chest pain or shortness of breath. No known injuries patient did take some medication for pain prior to arrival which did ease his pain slightly. MD elicited complaint: back pain Pertinent past history: prior back pain Onset (ago): hour(s) Timing: intermittent Severity: severe Pain scale (0-10): 9 Similar Symptoms Previously: Yes Quality: sharp and spasming Location: right lower back Radiation: none Exacerbating factors: movement and walking Relieving factors: immobilization and medication Context: while lifting, turning/twisting and bending Related Data Home Medications Medication Instructions Recorded Confirmed atorvastatin 10 mg tablet 10 mg PO DAILY 10/19/22 03/14/24 Allergies Allergy/AdvReac Type Severity Reaction Status Date / Time No Known Allergies Allergy Verified 03/14/24 10:43 Review of Systems Review of Systems: All systems reviewed & are unremarkable except as noted in HPI and below PMFSH Past Medical History Medical History Actinic keratitis (Unknown) History of malignant neoplasm of prostate Hypercholesteremia (Unknown) Obstructive sleep apnea (Unknown) Social History Social History Smoking status: Never smoker Alcohol intake: never Substance use: never Substance use type: does not use Living arrangements: with family Gender identity (if verbalized by the patient): Male Sexual Orientation (if Verbalized by the Patient): Straight or Heterosexual Spiritual care concerns: No Exam Const: General: healthy appearing and no acute distress Nutritional Appearance: well nourished Orientation/consciousness: patient oriented x3 Limitations: no limitations Neck: Neck: normal visual inspection, no lymphadenopathy and no meningeal signs Chest: Chest palpation & inspection: normal inspection of the chest Resp: Effort & Inspection: normal respiratory effort Auscultation: clear to auscultation bilaterally Cardio: Rate: regular rate Rhythm: regular rhythm GI: GI Palp: Yes Soft to palpation Auscultation: normal bowel sounds : General: Yes bladder normal to palpation Back/Spine/Pelvis: Back: CVA tenderness Skin: General skin exam: normal color Rashes: no rashes Neuro: General: patient oriented x3, moves all extremities, no meningeal signs and no focal motor deficits Extrem: General: normal to inspection Course Course Emergency Course: Patient received 30mg IV Toradol along with IV fluids after reassessment pain level has improved CT scan performed showed no acute intra-abdominal abnormalities no evidence of kidney stones rest of his blood work was unremarkable including a UA which was within normal limits. Vital Signs Vital signs: Vital Signs Temperature 36.1 C L 03/14/24 10:39 Pulse Rate 60 03/14/24 10:39 Respiratory Rate 16 03/14/24 10:39 Blood Pressure 134/76 03/14/24 10:39 Pulse Oximetry 98 03/14/24 10:39 Oxygen Delivery Room Air 03/14/24 10:39 Temperature 36.1 C L 03/14/24 10:39 Pulse Rate 60 03/14/24 10:39 Respiratory Rate 16 03/14/24 10:39 Blood Pressure 134/76 03/14/24 10:39 Pulse Oximetry 98 03/14/24 10:39 Oxygen Delivery Room Air 03/14/24 10:39 MDM - Back Pain/Injury Lab Data 03/14/24 11:03 03/14/24 11:03 Labs: Lab Results 03/14/24 03/14/24 Range/Units 10:48 11
--- NOTE | 2024-03-14 11:41 | PC.NURSE ---
pt reports pain is much better at this time. pt is ready to be dc home. is at bedside.
[2024-03-14 11:55] VITALS: BP 128/74; PULSE 52; RESP 18; O2SAT 98
== END 2024-03-14 11:55 | disposition home or self-care (01) ==
PROVIDERS: Emergency Provider Emergency Medicine; PCP Internal Medicine
DX: S39.012A Strain of muscle, fascia and tendon of lower back, initial encounter (principal); X58.XXXA Exposure to other specified factors, initial encounter
CPT/HCPCS: 36415; 74176; 80053; 81003; 82550; 83605; 83690; 85025; 96361; 96374; 99284; 99285; J1885; J7030

== ENCOUNTER 2024-05-05 10:09 | Emergency (ER) | payer MEDICARE, SELFPAY ==
[2024-05-05] VITALS (13 sets, daily range): BP systolic 118–168; BP diastolic 67–84; PULSE 54–58; RESP 16–20; TEMP 36.5; O2SAT 91–98
--- NOTE | ~2024-05-05 | CT_ITS ---
Noncontrast CT scan of the cervical spine Technique: Multiple contiguous axial [address] images of the cervical spine were obtained and rec onstructed in 2D sagittal and coronal planes on the acquisition scanner. Dose reduction technique was used on this scan by utilizing automated exposure control, adjustment of the mA and/or kV according to patient size. The dose-length product (DLP) was 317.13 mGy-cm. Clinical History: Pain Findings: No fractures or dislocations. There is severe degenerative disc narrowing at C4-C5, C5-C6, and C6-C7. There is advanced bilateral neural foraminal narrowing at C4-C5 with bilateral facet arth ropathy and mild disc osteophyte complex. There is bilateral neural foraminal narrowing at C5-C6, rig ht worse than left, bilateral facet arthropathy and disc osteophyte complex. There is mild disc osteo phyte complex at C6-C7. No prevertebral soft tissue swelling. Impression: No fracture or subluxation of the cervical spine. Moderate degenerative spondylosis, as above. Reviewed, dictated and finalized at [facility]. WORKS ASSEMBLY SUPERVISOR Impression: No fracture or subluxation of the cervical spine. Moderate degenerative spondylosis, as above.
--- NOTE | ~2024-05-05 | CT_ITS ---
Clinical Indication: Status post fall CT Scan of the Chest, Abdomen, and Pelvis with Contrast: Technique: Contiguous sections were acquired throughout the chest, abdomen, and pelvis after intraven ous administration of 100 cc of Omnipaque 350. Dose reduction technique was used on this scan by vandana lucero automated exposure control and iterative reconstruction technique. The dose-length product (DL P) was 752.39 mGy-cm. Findings: There is no evidence of any significant mediastinal, hilar or axillary lymphadenopathy. The mediastin al soft tissues appear normal. There is no evidence of pleural or pericardial effusion. The lungs are clear, aside from mild dependent atelectatic/hypoventilatory changes. The liver, spleen, pancreas, gallbladder, adrenals and kidneys are within normal limits. No evidence of aortic aneurysm. No lymphadenopathy. No bowel obstruction or bowel wall thickening. There is no evidence to suggest acute appendicitis. Urinary bladder is unremarkable. No pelvic mass seen. No ascites. Impression: No significant abnormalities seen. Reviewed, dictated and finalized at [facility]. NICAL CLERK Impression: No significant abnormalities seen.
--- NOTE | ~2024-05-05 | CT_ITS ---
Non-contrast Head CT History: Status post fall Technique: Axial non-contrast imaging of the brain was performed. Dose reduction technique was used on this scan by utilizing automated exposure control and iterative reconstruction technique. The dose -length product (DLP) was 605.33 mGy-cm. Findings: There is no evidence of intracranial hemorrhage, mass lesion, or acute infarct. Brain par enchyma appears normal. The ventricles and subarachnoid spaces are normal in size. The calvarium ap pears normal. The visualized paranasal sinuses and mastoid air cells are clear. Impression: No significant abnormality seen. Reviewed, dictated and finalized at location . BUILDER Impression: No significant abnormality seen.
--- NOTE | 2024-05-05 10:16 | ED_ITS ---
HPI - General Adult General Chief complaint: Back Pain/Injury Stated complaint: left rib pain Time Seen by Provider: 05/05/24 10:11 History of Present Illness HPI narrative: Odilon is a 78M with a PMH of HLD that was shocked by an electric fence and fell 6ft off of a ladder on his left side. He now has pain in his left chest and back. He has pain with deep inspiration. He did not hit his head or have any LOC. Related Data Home Medications Medication Instructions Recorded Confirmed atorvastatin 10 mg tablet 10 mg PO DAILY 10/19/22 05/05/24 Allergies Allergy/AdvReac Type Severity Reaction Status Date / Time No Known Allergies Allergy Verified 05/05/24 10:10 Review of Systems Review of Systems: All systems reviewed & are unremarkable except as noted in HPI and below [facility] Past Medical History Medical History Actinic keratitis (Unknown) History of malignant neoplasm of prostate Hypercholesteremia (Unknown) Obstructive sleep apnea (Unknown) Social History Social History Smoking status: Never smoker Alcohol intake: never Substance use: never Substance use type: does not use Living arrangements: with family Gender identity (if verbalized by the patient): Male Sexual Orientation (if Verbalized by the Patient): Straight or Heterosexual Spiritual care concerns: No Exam Const: General: cooperative, healthy appearing, comfortable, no acute distress, well developed, alert, awake and Physically active Orientation/consciousness: oriented to person, oriented to place and oriented to time HENMT: Head: normal to inspection, normocephalic and atraumatic Ears: hearing grossly normal bilaterally and external ears normal Face/Nose/Sinus: Normal external nose present Eyes: General: appearance normal, both eyes and all related structures Periorbital: periorbital findings normal Sclera: sclerae normal Pupils: Equal, round and reactive pupils present Neck: Neck: normal visual inspection Chest: Chest palpation & inspection: normal inspection of the chest Other: TTP on the left side Resp: Effort & Inspection: normal respiratory effort, able to speak in complete sentences and no respiratory distress Auscultation: clear to auscultation bilaterally Cardio: Jugular venous distension: no JVD Rate: regular rate Rhythm: regular rhythm Skin: General skin exam: normal color and no rashes or lesions noted Neuro: General: oriented to person, oriented to place and oriented to time Cranial nerves: Yes Equal, round and reactive pupils present Extrem: General: normal to inspection Course Course Emergency Course: Ordered labs, CT, morphine and EKG EKG showed NSR with a rate of 53, normal axis and no ST elevation/depression Noncontrast CT scan of the cervical spine Technique: Multiple contiguous axial [address] images of the cervical spine were obtained and reconstructed in 2D sagittal and coronal planes on the acquisition scanner. Dose reduction technique was used on this scan by utilizing automated exposure control, adjustment of the mA and/or kV according to patient size. The dose-length product (DLP) was 317.13 mGy-cm. Clinical History: Pain Findings: No fractures or dislocations. There is severe degenerative disc narrowing at C4-C5, C5-C6, and C6-C7. There is advanced bilateral neural foraminal narrowing at C4-C5 with bilateral facet arthropathy and mild disc osteophyte complex. There is bilateral neural foraminal narrowing at C5-C6, right worse than left, bilateral facet arthropathy and disc osteophyte complex. There is mild disc osteophyte complex at C6-C7. No prevertebral soft tissue swelling. Impression: No fracture or subluxation of the cervical spine. Moderate degenerative spondylosis, as above. Non-contrast Head CT History: Status post fall Technique: Axial non-contrast imaging of the brain was performed. Dose reduction technique was used on this scan by utilizing automated exposure control and iterative reconstruction technique. The dose-length product (DLP) was 605.33 mGy-cm. Findings: There is no evidence of intracranial hemorrhage, mass lesion, or acute infarct. Brain parenchyma appears normal. The ventricles and subarachnoid spaces are normal in size. The calvarium appears normal. The visualized paranasal sinuses and mastoid air cells are clear. Impression: No significant abnormality seen. CT Scan of the Chest, Abdomen, and Pelvis with Contrast: Technique: Contiguous sections were acquired throughout the chest, abdomen, and pelvis after intravenous administration of 100 cc of Omnipaque 350. Dose reduction technique was used on this scan by utilizing automated exposure cont rol and iterative reconstruction technique. The dose-length product (DLP) was 752.39 mGy-cm. Findings: There is no evidence of any significant mediastinal, hilar or axillary lymphadenopathy. The mediastinal soft tissues appear normal. There is no evidence of pleural or pericardial effusion. The lungs are clear, aside from mild dependent atelectatic/hypoventilatory changes. The liver, spleen, pancreas, gallbladder, adrenals and kidneys are within normal limits. No evidence of aortic aneurysm. No lymphadenopathy. No bowel obstruction or bowel wall thickening. There is no evidence to suggest a cute appendicitis. Urinary bladder is unremarkable. No pelvic mass seen. No ascites. Impression: No significant abnormalities seen. No posttraumatic fracture seen. No rib fracture identified. CLIPPER Labs and UA largely unremarkable He has tramadol at home for the pain. Vital Signs Vital signs: Vital Signs Temperature 97.7 F 05/05/24 10:13 Pulse Rate 58 L 05/05/24 10:13 Respiratory Rate 20 05/05/24 10:13 Blood Pressure 168/73 H 05/05/24 10:13 Pulse Oximetry 97 05/05/24 10:13 Oxygen Delivery Room Air 05/05/24 10:13 Temperature 97.7 F 05/05/24 10:13 Pulse Rate 58 L 05/05/24 10:13 Respiratory Rate 20 05/05/24 10:13 Blood Pressure 168/73 H 05/05/24 10:13 Pulse Oximetry 97 05/05/24 10:13 Oxygen Delivery Room Air 05/05/24 10:13 Medical Decision Making Vital Signs Vital Signs: Vital Signs Temperature 97.7 F 05/05/24 10:13 Pulse Rate 58 L 05/05/24 10:13 Respiratory Rate 20 05/05/24 10:13 Blood Pressure 168/73 H 05/05/24 10:13 Pulse Oximetry 97 05/05/24 10:13 Oxygen Delivery Room Air 05/05/24 10:13 Temperature 97.7 F 05/05/24 10:13 Pulse Rate 58 L 05/05/24 10:13 Respiratory Rate 20 05/05/24 10:13 Blood Pressure 168/73 H 05/05/24 10:13 Pulse Oximetry 97 05/05/24 10:13 Oxygen Delivery Room Air 05/05/24 10:13 Discharge Plan Discharge Clinical Impression: Rib contusion Patient Disposition: Home, Self-Care Condition: Stable Instructions: Fall Prevention (ED) Prescriptions: No Action atorvastatin 10 mg tablet 10 mg PO DAILY Follow-up/Referrals: Ángel Guevara MD [Primary Care Provider] -
--- NOTE | 2024-05-05 10:21 | ECG_ITS ---
Test Date: 2024-05-05 10:38:04 Measurements Intervals Wideman Rate: 53 P: 52 OK: 195 QRS: 22 QRSD: 106 T: 27 QT: 420 QTc: 395 Interpretive Statements SINUS BRADYCARDIA INCOMPLETE RIGHT BUNDLE BRANCH BLOCK BASELINE ARTIFACT- I, II, III, AVR, AVL, AVF, V5 BORDERLINE ECG No previous ECG available for comparison Electronically Signed On 05-05-2024 18:23:32 CISCO ADMINISTRATOR by Raciel Gutierres D.O.
--- NOTE | 2024-05-05 10:21 | PC.NURSE ---
Patient states he does not want morphine for pain wants something not as strong, ERP Dr. Springer made aware.
--- NOTE | 2024-05-05 10:26 | PC.NURSE ---
ERP spoke with patient. morphine dosage has been decreased. Patient agree's to medication.
[2024-05-05] MEDS: MORPHINE SULFATE (*CRX) 2 MG/ML INJ IV PUSH (10:27)
[2024-05-05 10:34] LABS: Basophils Absolute Auto 0.01 K/mm3 (0.00-0.10); Basophils Percent Auto 0.2 % (0.0-1.0); Eosinophils Absolute Auto 0.09 K/mm3 (0.02-0.50); Eosinophils Percent Auto 1.8 % (1.0-6.0); Hematocrit 39.6 % (37.0-46.0); Hemoglobin 13.4 g/dL (12.4-15.3); Immature Granulocyte Absolute 0.02 K/mm3 (0.00-0.00); Immature Granulocyte Percent A 0.4 % (0.0-0.0); Lymphocytes Absolute Auto 1.61 K/mm3 (1.10-4.50); Lymphocytes Percent Auto 31.9 % (18.0-42.0); Mean Corpuscular HGB Conc 33.8 g/dL (32-36); Mean Corpuscular Hemoglobin 31.2 pg (27.0-31.0); Mean Corpuscular Volume 92.1 fL (78.0-102.0); Mean Platelet Volume 10.1 fl (8.7-11.0); Monocytes Percent Auto 7.9 % (2.0-11.0); Neutrophils Absolute Auto 2.91 K/mm3 (1.70-7.20); Neutrophils Percent Auto 57.8 % (50.0-70.0); Platelet Count Result 156 K/mm3 (150-420); Red Cell Distribution Width 12.8 % (11.6-14.4)
[2024-05-05 10:50] LABS: Alanine Aminotransferase 22 U/L (16-63); Albumin Level 3.5 g/dL (3.4-5.0); Alkaline Phosphatase 81 U/L (46-116); Anion Gap 11 mmol/L (4-12); Aspartate Amino Transferase 17 U/L (15-37); Bilirubin,Total 0.7 mg/dL (0.00-1.00); Blood Urea Nitrogen 16 mg/dL (7-18); Carbon Dioxide 26 mmol/L (21-32); Chloride 105 mmol/L (98-108); Creatine Kinase 147 U/L (39-308); Estimated CRCL calculation 50 ml/min; Estimated Glomerular Filt Rate > 60; Glucose 99 mg/dL (70-99); Lipase 25 U/L (16-77); Osmolality Calculated 295 mOsm/kg (285-295); Potassium 3.8 mmol/L (3.5-5.1); Sodium 142 mmol/L (136-145); Total Protein 6.8 g/dL (6.4-8.2); Troponin I 7.5 ng/L (0.00-60.4)
[2024-05-05 10:53] LABS: Lactic Acid Reflex 0.6 mmol/L (0.4-2.0)
--- NOTE | 2024-05-05 10:56 | PC.NURSE ---
Patient taken down Ct.
--- NOTE | 2024-05-05 11:13 | PC.NURSE ---
Patient back in room from CT.
[2024-05-05 11:38] LABS: Add Urine Microscopic? NO; Appearance Urine Clear (Clear); Bilirubin Urine Negative (Negative); Blood Urine Negative (Negative); Color Urine Light Yellow (Yellow); Glucose Urine UA Negative (Negative); Ketones Urine Negative (Negative); Leukocyte Esterase Ur Negative (Negative); Nitrate Urine Negative (Negative); Protein Urine Negative (Negative); Specific Grav Ur <= 1.005 (1.010-1.020); Urobilinogen Urine 0.2 mg/dL (0.2-1.0)
== END 2024-05-05 12:20 | disposition home or self-care (01) ==
PROVIDERS: Emergency Provider Family Medicine; PCP Internal Medicine
DX: S20.212A Contusion of left front wall of thorax, initial encounter (principal); E78.5 Hyperlipidemia, unspecified; W11.XXXA Fall on and from ladder, initial encounter; Z79.899 Other long term (current) drug therapy
CPT/HCPCS: 36415; 70450; 71260; 72125; 74177; 80053; 81003; 82550; 83605; 83690; 84484; 85025; 93005; 96374; 99284; J2270; Q9967

== ENCOUNTER 2024-05-11 14:20 | Emergency (ER) | payer MEDICARE, SELFPAY ==
--- NOTE | ~2024-05-11 | XR_ITS ---
EXAMINATION: XR ribs LT 2V Exam Date/Time: 05/11/2024 14:40 HOME CARE CONSULTANT HISTORY: Fall, Lt. rib pain worsens w/ respiration x1 week Comparison: CT cap 05/05/2024 X-ray chest 09/12/2022. RESULT: Lines, tubes, and devices: None. Lungs and pleura: Streaky bibasilar opacities. Cardiothymic silhouette: Stable. Other: No acute osseous or upper abdominal finding. Ovoid 2.7 cm hyperdensity projecting over the le ft lower chest. IMPRESSION: No acute cardiopulmonary process. No acute osseous finding in the left ribs. 2.7 cm hyperdensity projecting over the left lower chest, presumably artifact given that no correlate is identified in the CT performed 6 days ago. Reviewed, dictated and finalized at location K. CARE CONSULTANT IMPRESSION: No acute cardiopulmonary process. No acute osseous finding in the left ribs. 2.7 cm hyperdensity projecting over the left lower chest, presumably artifact g iven that no correlate is identified in the CT performed 6 days ago.
[2024-05-11 14:20] VITALS: BP 150/88; PULSE 83; RESP 14; TEMP 36.4; O2SAT 97
[2024-05-11] MEDS: KETOROLAC 30 MG/ML VIAL (*BKC) IM (14:35)
--- NOTE | 2024-05-11 15:34 | ED.BACK ---
HPI - Back Pain/Injury General Chief Complaint: Back Pain/Injury Stated Complaint: left side pain Time Seen by Provider: 05/11/24 14:27 Source: patient and family Mode of arrival: ambulatory Limitations: no limitations History of Present Illness HPI Narrative: this is a 78-year-old male who presents with some continued left lower rib pain after a fall that he sustained a week ago he had been seen in the ER had CT scan chest abdomen pelvis that was unremarkable and was started on muscle relaxers and was taking Tylenol and ibuprofen [id number] with some minimal relief patient's pain continues and presents today with a pain level about an 8/10 painful with deep inspiration. No fever chills no chest pain no shortness of breath. MD elicited complaint: fall Pertinent past history: recent trauma Onset (ago): week(s) Timing: intermittent Severity: moderate Related Data Home Medications Medication Instructions Recorded Confirmed atorvastatin 10 mg tablet 10 mg PO DAILY 10/19/22 05/11/24 cyclobenzaprine 10 mg tablet 10 mg PO TID PRN Pain 05/11/24 05/11/24 Allergies Allergy/AdvReac Type Severity Reaction Status Date / Time No Known Allergies Allergy Verified 05/11/24 14:23 Review of Systems Review of Systems: All systems reviewed & are unremarkable except as noted in HPI and below PMFSH Past Medical History Medical History Actinic keratitis (Unknown) History of malignant neoplasm of prostate Hypercholesteremia (Unknown) Obstructive sleep apnea (Unknown) Social History Social History Smoking status: Never smoker Alcohol intake: never Substance use: never Substance use type: does not use Living arrangements: with family Gender identity (if verbalized by the patient): Male Sexual Orientation (if Verbalized by the Patient): Straight or Heterosexual Spiritual care concerns: No Exam Const: General: healthy appearing, no acute distress and alert Nutritional Appearance: well nourished Orientation/consciousness: patient oriented x3 Limitations: no limitations Neck: Neck: normal visual inspection and no lymphadenopathy Chest: Chest palpation & inspection: normal inspection of the chest Resp: Effort & Inspection: normal respiratory effort Auscultation: clear to auscultation bilaterally Cardio: Rate: regular rate Rhythm: regular rhythm GI: GI Palp: Yes Soft to palpation Auscultation: normal bowel sounds Skin: General skin exam: normal color Rashes: no rashes Wounds: no wounds Neuro: General: patient oriented x3 and moves all extremities Extrem: Other: Tender left lower rib area with palpation Course Course Emergency Course: x-ray performed shows no acute rib fractures or acute cardiopulmonary abnormalities. Patient was given 30mg IM Toradol and pain level has improved. Vital Signs Vital signs: Vital Signs Temperature 36.4 C L 05/11/24 14:20 Pulse Rate 83 05/11/24 14:20 Respiratory Rate 14 05/11/24 14:20 Blood Pressure 150/88 H 05/11/24 14:20 Pulse Oximetry 97 05/11/24 14:20 Oxygen Delivery Room Air 05/11/24 14:20 Temperature 36.4 C L 05/11/24 14:20 Pulse Rate 83 05/11/24 14:20 Respiratory Rate 14 05/11/24 14:20 Blood Pressure 150/88 H 05/11/24 14:20 Pulse Oximetry 97 05/11/24 14:20 Oxygen Delivery Room Air 05/11/24 14:20 Critical Care Time Critical Care Time Critical Care Time: No Discharge Plan Discharge Clinical Impression: Rib sprain Qualifiers: Encounter type: subsequent encounter Qualified Code(s): S23.41XD - Sprain of ribs, subsequent encounter Patient Disposition: Home, Self-Care Condition: Stable Instructions: Antibiotic Form, Rib Contusion (ED) Additional Instructions: advised take medication as prescribed and follow with primary if symptoms persist or worsen. Prescriptions: New oxycodone-acetaminophen [Percocet] 5-325 mg tablet 1 tablet PO Q6H PRN (Reason: pain) Qty: 20 0RF No Action cyclobenzaprine 10 mg tablet 10 mg PO TID PRN (Reason: Pain) atorvastatin 10 mg tablet 10 mg PO DAILY Follow-up/Referrals: Ángel Guevara MD [Primary Care Provider] - Time of Disposition: 15:39
[2024-05-11 15:44] VITALS: BP 131/78; PULSE 62; RESP 16; O2SAT 96
== END 2024-05-11 15:47 | disposition home or self-care (01) ==
PROVIDERS: Emergency Provider Emergency Medicine; PCP Internal Medicine
DX: S23.41XD Sprain of ribs, subsequent encounter (principal); Z79.899 Other long term (current) drug therapy; W19.XXXD Unspecified fall, subsequent encounter
CPT/HCPCS: 71100; 96372; 99283; J1885

== ENCOUNTER 2024-05-28 09:20 | Outpatient (CLI) | payer MEDICARE, SELFPAY ==
[2024-05-28 11:14] LABS: Alanine Aminotransferase 35 U/L (16-63); Albumin Level 3.6 g/dL (3.4-5.0); Alkaline Phosphatase 99 U/L (46-116); Anion Gap 6 mmol/L (4-12); Aspartate Amino Transferase 18 U/L (15-37); Bilirubin,Total 0.6 mg/dL (0.00-1.00); Blood Urea Nitrogen 16 mg/dL (7-18); Carbon Dioxide 30 mmol/L (21-32); Chloride 105 mmol/L (98-108); Cholesterol 150 mg/dL (0-200); Creatine Kinase 50 U/L (39-308); Estimated Glomerular Filt Rate > 60; Glucose 93 mg/dL (70-99); HDL Direct 60 mg/dL (40-60); LDL Cholesterol Calculated 81 mg/dL (<130); Osmolality Calculated 293 mOsm/kg (285-295); Sodium 141 mmol/L (136-145); Total Protein 6.4 g/dL (6.4-8.2); Triglycerides 47 mg/dL (0-150)
[2024-05-28 11:16] LABS: Prostate Specific Antigen < 0.1 ng/mL (< OR = 4.0)
== END 2024-05-28 09:21 | disposition home or self-care (01) ==
LOC: CHSLAB 09:22
PROVIDERS: PCP Internal Medicine; Visit Provider Urology
DX: E78.5 Hyperlipidemia, unspecified (principal); C61 Malignant neoplasm of prostate
CPT/HCPCS: 36415; 80053; 80061; 82550; 84153

== ENCOUNTER 2025-05-16 07:40 | Outpatient (CLI) | payer MEDICARE, SELFPAY ==
--- NOTE | ~2025-05-16 | CT_ITS ---
CTA neck Clinical History: RIGHT INTERNAL CAROTID STENOSIS Technique: Helical images thoracic inlet through skull base 100 mL Omnipaque 350 Coronal, sagittal reformats. Multiplanar MIPS CT images acquired with automatic exposure control for dose reduction. DLP: 600 mGy-cm Comparison: CTA neck 05/03/2024 Findings: NASCET Criteria utilized CTA FINDINGS: Aortic arch: No aneurysm or dissection. Great vessel origins: No stenosis. CCAs: Mild noncalcified plaque but no significant stenosis. Cervical ICAs: Narrowest area right side: 1.8 mm. Normal distal artery: 5 mm. 65% stenosis. Left side without stenosis. Vertebral Arteries: Patent. Visualized [place]: Unremarkable. NON-CTA FINDINGS: Lung Apices: Clear. Coronary artery calcification. Thyroid: Unremarkable. Nodes: No enlarged nodes. Bones: No acute bony abnormality. IMPRESSION: 1. 65% stenosis right ICA. 2. No stenosis left ICA. 3. No other acute abnormality. Stenoses measured by NASCET criteria. Reviewed, dictated and finalized at location R. TY JAILER
--- OUTSIDE RECORDS SUMMARY | 2025-05-16 07:44 | XMS_ITS | Clinical Summary ---
Author Organization [facility] Address [address] [place] [id number] Care Team Providers Care Pulpwood Buyer Name Role Phone Ángel Guevara MD Primary Care Provider [phone] Oniel Lee MD Unavailable [phone] Allergies No known active allergies Medications No known medications Active Problems Problem Noted Date Diagnosed Date Heart palpitations 08/04/2022 Ascending aorta dilatation 08/04/2022 Resolved Problems Problem Noted Date Diagnosed Date Resolved Date Dyspnea 12/09/2016 12/16/2016 Fatigue 08/04/2022 Dyspnea 08/04/2022 Family History Medical History Relation Comments Diabetes Father CHF Mother Diabetes Mother Relation Status Comments Father Mother Alive diabetes Social History Tobacco Use Types Packs/Day Years Used Date Smoking Tobacco: Never Smokeless Tobacco: Never Tobacco Cessation:Counseling Given: Not Answered Alcohol Use Standard Drinks/Week Comments No 0 (1 standard drink = 0.6 oz pur e alcohol) Sex and Gender Information Value Date Recorded Sex Assigned at Not on file Legal Sex Male 9:47 AM CDT Gender Identity Not on file Sexual Orientation Not on file Last Filed Vital Signs Vital Sign Reading Time Taken Comments Blood Pressure 132/70 08/04/2022 10:29 AM MARINE ENGINEERING CONSULTANT Pulse 74 08/04/2022 10:29 AM MARINE ENGINEERING CONSULTANT Temperature 36.7 C (98.1 F) 06/23/2022 3:40 PM MARINE ENGINEERING CONSULTANT Respiratory Rate 18 08/04/2022 10:2 9 AM MARINE ENGINEERING CONSULTANT Oxygen Saturation 96% 06/23/2022 4:00 PM MARINE ENGINEERING CONSULTANT Inhaled Oxygen Concentration - - Weight 72.9 kg (160 lb 12.8 oz) 023 10:29 AM MARINE ENGINEERING CONSULTANT Height 167.6 cm (5' 6) 08/04/2022 10:2 9 AM MARINE ENGINEERING CONSULTANT Body Mass Index 25.95 08/04/2022 10:29 AM MARINE ENGINEERING CONSULTANT Plan of Treatment Health Maintenance Due Date Last Done Comments Hepatitis C 11/30/1963 Pneumococcal Vaccine: 50+ Years (1 of 1 - PCV) 11/30/1995 Zoster Vaccines (1 of 2) 11/30/1995 Annual Medicare Wellness Visit 2010 RSV Immunization or 60+ Years (1 - 1-dose 75+ series) 2020 COVID-19 Vaccine ( - season) 2025 05/17/2022, 05/12/2021, 09/23/2020, Additional history exists Influenza Adult (#1) 2025 03/24/2021, 05/07/2015, 03/27/2014, Additional history exists DTaP, Tdap and Td Vaccines (2 - Td or Tdap) 05/23/2029 05/23/2019 AAA SCREENING Completed 06/23/2022 Hepatitis A Vaccines Aged Out No long er eligible based on patient's age to complete this topic Meningococcal B Vaccine Aged Out No l onger eligible based on patient's age to complete this topic Meningococcal Vaccine Aged Out No omero carter eligible based on patient's age to complete this topic RSV Immunizations Under 20 Months Aged Out No longer eligible based on patient's age to complete this topic Procedures Procedure Name Priority Date/Time Associated Diagnosis Comments CT CHEST W CON STAT 06/23/2022 4:13 PM MARINE ENGINEERING CONSULTANT from Last 3 Months or Most Recently Relevant to Health Maintenance Results * CT CHEST W CON (06/23/2022 4:13 PM MARINE ENGINEERING CONSULTANT) Anatomical Region Laterality Modality Chest Computed Tomogra phy 06/23/2022 4:42 PM MARINE ENGINEERING CONSULTANT Impressions 06/23/2022 4:48 PM MARINE ENGINEERING CONSULTANT IMPRESSION: 1. No acute abnormality. Right paratracheal density on chest radiograph is likely attributable to a tortuous right brachiocephalic/innominate artery, an incidental finding. 2. Mild pulmonary scarring and relatively diffuse bronchiectasis, likely chronic. 3. Minimal ectasia of the ascending thoracic aorta at 3.7 cm. coronary Ordered By: ELIZA MULLINS Interpreted By: Hussain Avila MD, 06/23/2022 4:42 PM Narrative 06/23/2022 4:48 PM MARINE ENGINEERING CONSULTANT EXAM: CT CHEST WITH CONTRAST INDICATION: Chest pain and palpitations, right paratracheal density on radiograph. COMPARISON: Radiograph, same day. No prior CT TECHNIQUE: After the administration of 70mL IOPAMIDOL 76 % IV SOLN, intravenously, multidetector CT is performed through the chest. Multiplanar images are created and reviewed. A dose lowering technique was used for this procedure, which may include, but is not limited to, dose reduction techniques, automated exposure control, the use of a iterative reconstruction, and ALARA (as low as reasonably achievable)/image gently techniques. FINDINGS: Heart: Heart size is normal. There is no pericardial effusion. Great vessels: There is minimal ectasia of the ascending thoracic aorta at 3.7 cm. A common origin of the brachiocephalic and left common carotid arteries is incidentally noted. The right paratracheal opacity on chest radiograph is likely attributable to a tortuous brachiocephalic/innominate artery, but there is no significant atherosclerotic change involving this vessel. Mild atheromatous changes are seen in the distal arch and descending aorta. Mediastinum and nayan: A few tiny calcified mediastinal and right lateral hilar nodes are seen, likely reflecting prior granulomatous infection. Pleura: There is no effusion, pneumothorax, or pleural mass. Lungs: A few calcified granulomata are present, and there is mild linear scarring in the lung bases. There is no acute pulmonary consolidation. Mild views bronchiectasis is noted. There are no concerning noncalcified pulmonary nodules. Upper abdomen: Within the upper abdomen, no acute process is identified. Simple-appearing cysts are seen in the liver and kidneys, and these do not require specific additional follow-up based on ACR guidelines. Other: No destructive osseous lesion is identified. Procedure Note Hussain Avila MD - 06/23/2022 EXAM: CT CHEST WITH CONTRAST INDICATION: Chest pain and palpitations, right paratracheal density onradiograph. COMPARISON: Radiograph, same day. No prior CT TECHNIQUE: After the administration of 70mL IOPAMIDOL 76 % IV SOLN,intravenously, multidetector CT is performed through the chest.Multiplanar images are created and reviewed. A dose lowering technique wasused for this procedure, which may include, but is not limited to, dosereduction techniques, automated exposure control, the use of a iterativereconstruction, and ALARA (as low as reasonably achievable)/image gentlytechniques. FINDINGS: Heart: Heart size is normal. There is no pericardial effusion. Great vessels: There is minimal ectasia of the ascending thoracic aorta at3.7 cm. A common origin of the brachiocephalic and left common carotidarteries is incidentally noted. The right paratracheal opacity on chestradiograph is likely attributable to a tortuous brachiocephalic/innominateartery, but there is no significant atherosclerotic change involving thisvessel. Mild atheromatous changes are seen in the distal arch anddescending aorta. Mediastinum and nayan: A few tiny calcified mediastinal and right lateralhilar nodes are seen, likely reflecting prior granulomatous infection. Pleura: There is no effusion, pneumothorax, or pleural mass. Lungs: A few calcified granulomata are present, and there is mild linearscarring in the lung bases. There is no acute pulmonary consolidation.Mild views bronchiectasis is noted. There are no concerning noncalcifiedpulmonary nodules. Upper abdomen: Within the upper abdomen, no acute process is identified.Simple-appearing cysts are seen in the liver and kidneys, and these do notrequire specific additional follow-up based on ACR guidelines. Other: No destructive osseous lesion is identified. IMPRESSION: 1. No acute abnormality. Right paratracheal density on chest radiograph islikely attributable to a tortuous right brachiocephalic/innominate artery,an incidental finding. 2. Mild pulmonary scarring and relatively diffuse bronchiectasis, likelychronic. 3. Minimal ectasia of the ascending thoracic aorta at 3.7 cm. coronary Ordered By: ELIZA MULLINS Interpreted By: Hussain Avila MD, 06/23/2022 4:42 PM us Eliza Mullins MD CT Final Resul t from Last 3 Months or Most Recently Relevant to Health Maintenance Insurance [facility]IC[facility] Care Teams [employer] Buyer Relationship Specialty Start Date End Date Ángel Guevara MD [address] [place] [address] PCP - General INTERNAL MEDICINE 12/14/16 Oniel Lee MD [address] [place] [address] [place] [employer] CARDIOVASCULAR DISEASE 12/14/16
--- OUTSIDE RECORDS SUMMARY | 2025-05-16 07:44 | XMS_ITS | Encounter Summary ---
Author Organization [facility] Address [facility] [place] [address] Care Team Providers Care Senior Landscape Architect Name Role Phone Ángel Guevara MD Primary Care Provider Oniel Lee MD Unavailable [phone] Encounter Details Date Type Department Care Team (Late st Contact Info) Description 12/09/2016 Abstract [facility] [address] [place] [address] Oniel Lee MD [address] [place] [address] Social History Tobacco Use Types Packs/Day Years Used Date Smoking Tobacco: Never Alcohol Use Standard Drinks/Week Comments No 0 (1 standard drink = 0.6 oz pur e alcohol) Sex and Gender Information Value Date Recorded Sex Assigned at Not on file Legal Sex Male 9:47 AM CDT Gender Identity Not on file Sexual Orientation Not on file documented as of this encounter Plan of Treatment Not on file documented as of this encounter Visit Diagnoses Not on filedocumented in this encounter Care Teams Senior Landscape Architect Relationship Specialty Start Date End Date Ángel Guevara MD [address] [place] [phone] PCP - General INTERNAL MEDICINE 12/14/16 Oniel Lee MD [address] [place] [address] [employer] CARDIOVASCULAR DISEASE 12/14/16 documented as of this encounter
[2025-05-16 08:00] LABS: Add Urine Microscopic? NO; Appearance Urine Clear (Clear); Glucose Urine UA Negative (Negative); Leukocyte Esterase Ur Negative (Negative); Nitrate Urine Negative (Negative); Specific Grav Ur 1.025 (1.010-1.020)
[2025-05-16 08:18] LABS: Alanine Aminotransferase 20 U/L (6-50); Albumin Level 4.2 g/dL (3.5-5.1); Alkaline Phosphatase 82 U/L (38-126); Anion Gap 9 mmol/L (4-12); Aspartate Amino Transferase 26 U/L (17-59); Bilirubin,Total 0.7 mg/dL (0.2-1.3); Blood Urea Nitrogen 15 mg/dL (9-20); Calcium 9.1 mg/dL (8.4-10.2); Carbon Dioxide 28 mmol/L (22-30); Chloride 107 mmol/L (98-107); Cholesterol 150 mg/dL (0-200); Creatine Kinase 81 U/L (55-170); Estimated Glomerular Filt Rate > 60; Glucose 99 mg/dL (65-110); HDL Direct 58 mg/dL; Osmolality Calculated 298 mOsm/kg (285-295); Potassium 4.0 mmol/L (3.4-5.0); Sodium 144 mmol/L (137-145); Total Protein 6.5 g/dL (6.3-8.2); Triglycerides 64 mg/dL (<150)
[2025-05-16 08:49] LABS: Prostate Specific Antigen 0.2 ng/mL (< OR = 4.0)
== END 2025-05-16 07:41 | disposition home or self-care (01) ==
LOC: CHSIMG 07:43
PROVIDERS: PCP Internal Medicine; Visit Provider Internal Medicine
DX: E78.00 Pure hypercholesterolemia, unspecified (principal); Z85.46 Personal history of malignant neoplasm of prostate; I65.21 Occlusion and stenosis of right carotid artery
CPT/HCPCS: 36415; 70498; 80053; 80061; 81003; 82550; 84153; Q9967